=== PATIENT | female | born 1950 | race Hispanic/Latino ===

== ENCOUNTER → 2025-01-16 | Outpatient (CLI) | payer OTHER, MEDICAID ==
--- NOTE | 2025-01-16 13:30 | NUR ---
MBSS COMPLETED (OUTPATIENT). PATIENT DID NOT ASPIRATE WITH ANY CONSISTENCY. DEEP NON-TRANSIENT PENETRATION WITH THIN LIQUIDS VIA CUP SIP DURING SWALLOW. RECOMMENDATIONS: Puree textures with thin liquids, meds via PEG; patient to continue with PEG tube feedings to supplement decreased PO intake. COMPENSATORY STRATEGIES: 1. Small bites/sips 2. Alternate bites/sips 3. Extra dry swallow 4. Sit upright 5. Check for pocketing 6. Verbal cues, supervision & assistance with intake DIAGNOSTIC FINDINGS: Patient presented with moderate oropharyngeal dysphagia characterized by decreased oral motor strength, ROM, and coordination; delayed swallow responses; decreased tongue base retraction; decreased hyo-laryngeal elevation/excursion. These characteristics were evidenced by decreased labial closure with anterior spillage, bolus hold; decreased A-P bolus propulsion; premature spillage to valleculae with occasional spillover to pyriform sinuses; residue on base of tongue and pooling in valleculae; deep non-transient penetration during the swallow with thin liquids via cup sip with no cough response; no aspirations noted during this study. BALE PILER reviewed results and recommendations with patient and family. BALE PILER educated patient on risks and consequences of aspiration. Speech therapy warranted at the discretion of the facility's BALE PILER. All questions answered. Addendum: 01/16/[address] [facility] LOPEZ Amended: Links added.
--- NOTE | 2025-01-19 13:11 | HMCIMG ---
MODIFIED BARIUM SWALLOW W CINE REASON: Feeding difficulties, unspecified/Dysphagia, oropharyngeal phase FINDINGS: Fluoroscopic assistance was provided to the speech pathologist while performing examination. For findings and dietary recommendations, refer to speech pathologist's report. FLUORO TIME: 4.5 minutes IMPRESSION: Modified barium swallow as described.
== END | disposition home or self-care (01) ==
LOC: RAH 13:16
PROVIDERS: ATTEND Internal Medicine Gastroenterology
DX: R13.12 Dysphagia, oropharyngeal phase (principal); R63.30 Feeding difficulties, unspecified
CPT/HCPCS: 74230; 92611